=== PATIENT | female | born 2000 | race Caucasian/White ===

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

== ENCOUNTER 2018-02-22 06:00 | Emergency (ER) | payer OTHER ==
[2018-02-22] MEDS ORDERED: METHYLPREDNISOLONE PF 125MG/VIAL IM ONE (06:19)
--- NOTE | 2018-02-22 06:27 | Emergency Department Record ---
History of Present Illness - General Chief complaint: Hives Stated complaint: HIVES Time Seen by Provider: 02/22/18 06:13 Source: Patient Mode of Arrival: Ambulatory Limitations: No limitations - History of Present Illness Initial comments: The patient is here due to a rash to her lower abdomen that she has had for 2 days. The patient had a Laparsoscopy 1 week ago and did take Motrin and [place] after which she has since stopped. About 2 days ago she developed an erythematous rash to the lower abdomen area mainly around the incision sites. The rash is burning at times and pruritic at other times. The rash is only located on the lower abdomen. She denies any SOB, EUGENIO, or any trouble swallowing. The patient has only been using Benadryl spray on it. The patient did see her Surgeon yesterday and was started on Keflex for a UTI also. MD complaint: Rash Onset/Timin -: Days(s) Severity: Mild Quality: Burning Consistency: Constant Improves with: None Context: None Associated symptoms: Itching - Related Data Previous Rx's Medication Instructions Recorded Prednisone [Prednisone 20Mg] 40 mg PO DAILY #8 tab 02/22/18 Allergies Allergy/AdvReac Type Severity Reaction Status Date / Time amoxicillin Allergy HIVES Verified 02/22/18 06:03 fluconazole [From Diflucan] Allergy HIVES Verified 02/22/18 06:03 meloxicam Allergy ANAPHYLAXIS Verified 06/29/17 19:32 Sulfa (Sulfonamide Allergy SWELLING Verified 05/26/16 17:49 Antibiotics) OF THE LIPS sulfamethoxazole Allergy RASH Verified 06/29/17 19:32 [From Bactrim] trimethoprim [From Bactrim] Allergy RASH Verified 06/29/17 19:32 Travel Screening - Travel/Exposure Within Last 30 Days Have you traveled within the last 30 days?: No - Travel Symptoms Symptom Screening: None Review of Systems Constitutional: Denies: Chills, Fever Eyes: Denies: Eye discharge ENT: Denies: Congestion Respiratory: Denies: Cough, Dyspnea Past Medical History - SOCIAL HISTORY Smoking Status: Never smoker - RESPIRATORY Hx Respiratory Disorders: No - CARDIOVASCULAR Hx Cardio Disorders: No - NEURO Hx Neuro Disorders: No - GI Hx GI Disorders: No - Hx Genitourinary Disorders: Yes Comment:: interstitial cystitis; Endometriosis - ENDOCRINE Hx Endocrine Disorders: No - MUSCULOSKELETAL Hx Musculoskeletal Disorders: No - PSYCH Hx Psych Problems: No - HEMATOLOGY/ONCOLOGY Hx Hematology/Oncology Disorders: No Family Medical History Any Significant Family History?: No Family Hx Comment (NOT TO BE USED IN PLACE OF ITEMS BELOW): pt denies Physical Exam - General General Appearance: Alert, Oriented x3, Cooperative, No acute distress - Head Head exam: Atraumatic, Normocephalic, Normal inspection - Eye Eye exam: Normal appearance, PERRL - ENT Throat exam: Normal inspection. negative: Tonsillar erythema, Tonsillar exudate - Neck Neck exam: Normal inspection, Full ROM. negative: Tenderness - Respiratory Respiratory exam: Normal lung sounds bilaterally. negative: Respiratory distress - Cardiovascular Cardiovascular Exam: Regular rate, Normal rhythm, Normal heart sounds - GI/Abdominal GI/Abdominal exam: Soft, Normal bowel sounds. negative: Tenderness - Extremities Extremities exam: Normal inspection, Full ROM, Normal capillary refill. negative: Tenderness - Back Back exam: Reports: Normal inspection - Neurological Neurological exam: Alert. negative: Motor sensory deficit - Skin Skin exam: Rash (There is a scattered macular papular erythematous rash to the lower anterior abdomen wall. There is also urticaria measuring < 1 cm around each Lap incision iste. There is no purulent drainage present and no warmth or tenderness. It appears to be an allergic rxn to possibly the skin cleansing agent since it is only over the surgical field. ) Course Vital Signs 02/22/18 06:04 Temperature 97.8 F Pulse Rate [ 96 H Pulse Ox Probe] Respiratory 20 Rate Blood Pressure 106/69 [Left Arm] Pulse Ox 100 - Reevaluation(s) Reevaluation #1: I did explain to the patient the need to continue the oral steroids tomorrow and also to take an oral antihistamine. 02/22/18 06:27 Disposition Disposition: Discharge Clinical Impression: Allergic reaction Qualifiers: Encounter type: initial encounter Qualified Code(s): T78.40XA - Allergy, unspecified, initial encounter Disposition: Home, Self-Care Condition: (2) Stable Instructions: Urticaria (ED) Additional Instructions: Please take an oral antihistamine for 5 days and continue the Prednisone tomorrow. Please see your family doctor if not better in 3 days. Return to the ER for any worsening symptoms. Prescriptions: Prednisone [Prednisone 20Mg] 40 mg PO DAILY #8 tab Forms: Patient Portal Access Time of Disposition: 06:28 Quality - Quality Measures Quality Measures: N/A - Blood Pressure Screening View Details: Yes Does Patient Have Any of the Following: No Blood Pressure Classification: Normal BP Reading Systolic Measurement: 99 Diastolic Measurement: 76 Screening for High Blood Pressure: < Normal BP, F/U Not Required > [G8783]
== END 2018-02-22 06:47 | disposition home or self-care (01) ==
LOC: ER 06:00
DX: L50.0 Allergic urticaria (principal); Z98.890 Other specified postprocedural states
CPT/HCPCS: 96372; 99283; J2930